=== PATIENT | female | born 1990 | race Caucasian/White ===

== ENCOUNTER 2021-01-31 20:37 | Emergency (ER) | payer SELFPAY ==
[~2021-01-31] VITALS: Ht 162.6 cm; Wt 63.9 kg
[2021-01-31] MEDS ORDERED: IV NORMAL SALINE 1,000ML 1,000 ML IV ONE (21:00)
--- NOTE | 2021-01-31 21:04 | PHYS DOC ---
General Adult EDM: Chief Complaint: MULTIPLE COMPLAINTS HPI: HPI: 30-year-old female presents with vaginal discharge and urinary retention. For the last couple days she has noticed a more greenish tent to her vaginal discharge. She also feels like the odor is different. Over the same time. She feels like she needs to urinate but then is unable to urinate sometimes. This is resulted in some lower abdominal pain. Patient also has not had a bowel movement in the last 2 days and she usually is fairly regular. She denies any new sexual partners. She denies fever or chills. Patient has a recent history of kidney stones. Review of Systems: Review of Systems: Constitutional: Denies fever or chills Eyes: Denies change in visual acuity HENT: Denies nasal congestion or sore throat Respiratory: Denies cough or shortness of breath Cardiovascular: Denies chest pain or edema GI: Denies abdominal pain, nausea, vomiting, bloody stools or diarrhea : Urinary retention, change in vaginal discharge Musculoskeletal: Denies back pain or joint pain Integument: Denies rash Neurologic: Denies headache, focal weakness or sensory changes Endocrine: Denies polyuria or polydipsia Lymphatic: Denies swollen glands Psychiatric: Denies depression or anxiety Current Medications: Current Meds: Current Medications Medications (Trade) Dose Ordered Sig/Elizabeth Start Time Stop Time Status Last Admin Dose Admin Sodium Chloride 1,000 ml @ 1,000 mls/hr 1X ONCE 01/31/21 21:00 01/31/21 21:59 Allergies: Allergies: Allergies Coded Allergies Type Severity Reaction Last Updated Verified amoxicillin Allergy Intermediate 01/31/21 Yes cefaclor Allergy Intermediate 01/31/21 Yes clavulanic acid Allergy Intermediate 01/31/21 Yes Physical Exam: PE: Constitutional: Well developed, well nourished, no acute distress, non-toxic appearance. [] HENT: Normocephalic, atraumatic, bilateral external ears normal, oropharynx moist, no oral exudates, nose normal. [] Eyes: PERRLA, EOMI, conjunctiva normal, no discharge. [] Neck: Normal range of motion, no tenderness, supple, no stridor. [] Cardiovascular:Heart rate regular rhythm, no murmur [] Lungs & Thorax: Bilateral breath sounds clear to auscultation [] Abdomen: Bowel sounds normal, soft, mild suprapubic tenderness, no masses, no pulsatile masses. [] Skin: Warm, dry, no erythema, no rash. [] Back: No tenderness, no CVA tenderness. [] Extremities: No tenderness, no cyanosis, no clubbing, ROM intact, no edema. [] Neurologic: Alert and oriented X 3, normal motor function, normal sensory function, no focal deficits noted. [] Psychologic: Affect normal, judgement normal, mood normal. [] Current Patient Data: Labs: Laboratory Tests Test 01/31/21 20:52 POC Urine HCG, Qualitative hcg negative (Negative) EKG: EKG: [] Radiology/Procedures: Radiology/Procedures: [] Impressions: PQRS Compliance Statement: One or more of the following individualized dose reduction techniques were utilized for this examination: 1. Automated exposure control 2. Adjustment of the mA and/or kV according to patient size 3. Use of iterative reconstruction technique CT ABDOMEN+PELVIS WO Clinical Indication: Reason: Bilateral flank pain, hx kidney stones / Spl. Instructions: / History: Comparison: CT abdomen and pelvis without contrast, December 31, 2020, [facility]. Technique: Helical CT imaging of the abdomen and pelvis is performed without IV or oral contrast. Findings: Evaluation of solid organs and bowel is limited without oral and IV contrast, decreasing sensitivity for detection of pathology. Lung bases clear. Cardiac size normal. Gallbladder is contracted. The liver, spleen, pancreas, adrenal glands, abdominal aorta, and kidneys are normal. There is no renal calculus. No obvious abnormality of the stomach. There is no small bowel obstruction. The appendix is normal. No colon wall thickening is identified. There is moderate colon stool volume. No abdominal adenopathy or free fluid. Retroverted uterus. Mild air in the vagina. Urinary bladder is decompressed. No pelvic free fluid. No acute bone abnormality. IMPRESSION: 1. No acute abdominal or pelvic abnormality. No obstructive uropathy. 2. Moderate colon stool volume, correlate for constipation. Electronically signed by: Uzair Tripp MD (01/31/2021 9:35 PM) [facility] DICTATED AND SIGNED BY: UZAIR TRIPP MD DATE: 01/31/212127 CC: DEANGELO WEBER DO; PCP,NO ~MTH0 0 Heart Score: C/O Chest Pain: N/A Risk Factors: Risk Factors: DM, Current or recent (<one month) smoker, HTN, HLP, family history of CAD, obesity. Risk Scores: Score 0 - 3: 2.5% MACE over next 6 weeks - Discharge Home Score 4 - 6: 20.3% MACE over next 6 weeks - Admit for Clinical Observation Score 7 - 10: 72.7% MACE over next 6 weeks - Early Invasive Strategies Course & Med Decision Making: Course & Med Decision Making Pertinent Labs and Imaging studies reviewed. (See chart for details) The patient's CT of the abdomen and pelvis is significant for constipation. I will discharge her with a bottle of magnesium citrate. The patient's labs are unremarkable. Her urinalysis is negative for infection. Her wet prep is positive for trichomonas and bacterial vaginosis. I will treat her with Flagyl for 7 days. We will give the first dose in the emergency room. She is stable for discharge at this time. [] Dragon Disclaimer: Dragon Disclaimer: This electronic medical record was generated, in whole or in part, using a voice recognition dictation system. Departure Departure: Impression: Primary Impression: Trichomonas infection Additional Impressions: Bacterial vaginosis Constipation by delayed colonic transit Disposition: HOME / SELF CARE / HOMELESS Condition: STABLE Referrals: PCP,NO (PCP) Patient Instructions: Bacterial Vaginosis, [id number], Constipation, Adult, [id number], Trichomoniasis-Brief Scripts Metronidazole (METRONIDAZOLE) 500 Mg Tablet 1 TAB PO BID for trichomonas for 7 Days, #14 TAB 1 Refill Prov: DEANGELO WEBER DO 01/31/21 DEANGELO WEBER DO Jan 31, 2021 21:04
[2021-01-31 21:30] LABS: BASO % 0 % (0-3); EOS # 0.2 x10^3/uL (0.0-0.7); EOS % 2 % (0-3); HEMATOCRIT 36.6 % (36.0-47.0); HEMOGLOBIN 12.2 g/dL (12.0-15.5); LYMPH % 21 % (24-48); MEAN CORPUSCULAR HEMOGLOBIN 30 pg (25-35); MEAN CORPUSCULAR HGB CONC 33 g/dL (31-37); MEAN CORPUSCULAR VOLUME 89 fL (79-100); MONO # 0.7 x10^3/uL (0.0-1.1); MONO % 7 % (0-9); NEUT # 6.5 x10^3uL (1.8-7.7); NEUT % 69 % (31-73); PLATELET COUNT 282 x10^3/uL (140-400); RED BLOOD COUNT 4.12 x10^6/uL (3.50-5.40); RED CELL DISTRIBUTION WIDTH 14.6 % (11.5-14.5); WHITE BLOOD COUNT 9.5 x10^3/uL (4.0-11.0)
[2021-01-31 21:37] LABS: CALCIUM 8.8 mg/dL (8.5-10.1); CREATININE 0.9 mg/dL (0.6-1.0); GFR 72.6; POTASSIUM 3.9 mmol/L (3.5-5.1)
--- NOTE | 2021-01-31 21:37 | RAD ---
PQRS Compliance Statement: One or more of the following individualized dose reduction techniques were utilized for this examinat ion: 1. Automated exposure control 2. Adjustment of the mA and/or kV according to patient size 3. Use of iterative reconstruction technique CT ABDOMEN+PELVIS WO Clinical Indication: Reason: Bilateral flank pain, hx kidney stones / Spl. Instructions: / History: Comparison: CT abdomen and pelvis without contrast, December 31, 2020, [facility]. Technique: Helical CT imaging of the abdomen and pelvis is performed without IV or oral contrast. Findings: Evaluation of solid organs and bowel is limited without oral and IV contrast, decreasing sensitivity for detection of pathology. Lung bases clear. Cardiac size normal. Gallbladder is contracted. The liver, spleen, pancreas, adrenal glands, abdominal aorta, and kidneys are normal. There is no renal calculus. No obvious abnormality of the stomach. There is no small bowel obstruction. The appendix is normal. N o colon wall thickening is identified. There is moderate colon stool volume. No abdominal adenopathy or free fluid. Retroverted uterus. Mild air in the vagina. Urinary bladder is decompressed. No pelvic free fluid. No acute bone abnormality. IMPRESSION: 1. No acute abdominal or pelvic abnormality. No obstructive uropathy. 2. Moderate colon stool volume, correlate for constipation. Electronically signed by: Uzair Barnes MD (01/31/2021 9:35 PM) [facility]
[2021-01-31 21:45] LABS: BACTERIA,URINE FEW /HPF (0-FEW); BILIRUBIN,URINE NEG (NEG); CLARITY,URINE CLEAR; COLOR,URINE YELLOW; GLUCOSE,URINE NEG (NEG); NITRITE,URINE NEG (NEG); RBC,URINE 0 /HPF (0-2); SQUAMOUS EPITHELIAL CELL,UR FEW /LPF; UROBILINOGEN,URINE 0.2 mg/dL (0.2 mg/dL)
[2021-01-31 21:45] LABS: ALBUMIN 3.4 g/dL (3.4-5.0); TOTAL BILIRUBIN 0.1 mg/dL (0.2-1.0); TOTAL PROTEIN 6.7 g/dL (6.4-8.2)
[2021-01-31] MEDS ORDERED: METR-34 PO (22:14)
[2021-01-31 22:25] VITALS: BP 108/61
[2021-01-31] MEDS ORDERED: MAGNESIUM CITRATE 296 ML SOLUTION. PO ONE (23:00)
[2021-01-31] MEDS ORDERED: metroNIDAZOLE 500 MG TABLET PO ONE (23:00)
[2021-02-02 19:02] LABS: CHLAMYDIA PROBE Negative (Negative)
== END 2021-01-31 22:30 | disposition home or self-care (01) ==
LOC: ER 20:37
DX: A59.9 Trichomoniasis, unspecified (principal); N76.0 Acute vaginitis; K59.01 Slow transit constipation; Z88.1 Allergy status to other antibiotic agents
CPT/HCPCS: 36415; 74176; 80053; 81001; 81025; 85025; 87086; 87491; 87591; 96360; 99284; J7030; Q0111

== ENCOUNTER 2021-02-17 15:39 | Emergency (ER) | payer SELFPAY ==
[~2021-02-17] VITALS: Ht 162.6 cm; Wt 63.9 kg
[~2021-02-17 15:39] MED LIST: METR-34 PO
[2021-02-17 15:53] VITALS: BP 130/92
[2021-02-17] MEDS ORDERED: diphenhydrAMINE HCL 25 MG CAPSULE PO ONE (16:00)
[2021-02-17] MEDS ORDERED: FAMO40TA4 PO (17:26)
[2021-02-17] MEDS ORDERED: PRED20TA PO (17:26)
[2021-02-17] MEDS ORDERED: DIPH25CA58 PO (17:26)
--- NOTE | 2021-02-17 17:28 | PHYS DOC ---
Past History Past Surgical History: No Surgical History (KEATON MCCORMACK APRN) Alcohol Use: None (KEATON MCCORMACK APRN) General Adult EDM: Chief Complaint: SKIN RASH/ABSCESS HPI: HPI: Patient is a 30-year-old female who presents with hives all over her body since last night. Patient reports taking Benadryl which helped with symptoms but rash has not improved. Patient denies using new soaps, lotions or any new exposure. Denies cough, chest pain or shortness of breath. Patient denies any medical history. (KEATON MCCORMACK APRN) Review of Systems: Review of Systems: ROS At least 10 ROS systems have been reviewed and are negative except as documented in the HPI. General: Negative except as outlined in HPI above. Skin: Negative except as outlined in HPI above. HEENT: Negative except as outlined in HPI above. Neck: Negative except as outlined in HPI above. Respiratory: Negative except as outlined in HPI above.. Cardiovascular: Negative except as outlined in HPI above. Abdomen: Negative except as outlined in HPI above. : Negative except as outlined in HPI above. Back/MSK: Negative except as outlined in HPI above. Neuro: Negative except as outlined in HPI above. Psych: Negative except as outlined in HPI above. (KEATON MCCORMACK APRN) Current Medications: Current Meds: Current Medications Medications (Trade) Dose Ordered Sig/Elizabeth Start Time Stop Time Status Last Admin Dose Admin Diphenhydramine HCl (Benadryl) 25 mg STK-MED ONCE 02/17/21 16:00 02/17/21 16:01 DC (KEATON MCCORMACK APRN) Allergies: Allergies: Allergies Coded Allergies Type Severity Reaction Last Updated Verified amoxicillin Allergy Intermediate 01/31/21 Yes cefaclor Allergy Intermediate 01/31/21 Yes clavulanic acid Allergy Intermediate 01/31/21 Yes (KEATON MCCORMACK APRN) Physical Exam: PE: Constitutional: Well developed, well nourished, no acute distress, non-toxic appearance. [] HENT: Normocephalic, atraumatic, bilateral external ears normal, oropharynx moist, no oral exudates, nose normal. [] Eyes: PERRLA, EOMI, conjunctiva normal, no discharge. [] Neck: Normal range of motion, no tenderness, supple, no stridor. [] Cardiovascular:Heart rate regular rhythm, no murmur [] Lungs & Thorax: Bilateral breath sounds clear to auscultation [] Abdomen: Bowel sounds normal, soft, no tenderness, no masses, no pulsatile masses. [] Skin: Generalized, pruritic, red, raised rash Back: No tenderness, no CVA tenderness. [] Extremities: No tenderness, no cyanosis, no clubbing, ROM intact, no edema. [] Neurologic: Alert and oriented X 3, normal motor function, normal sensory function, no focal deficits noted. [] Psychologic: Affect normal, judgement normal, mood normal. [] (KEATON MCCORMACK APRN) Current Patient Data: Vital Signs: Vital Signs Date Time Temp Pulse Resp B/P (MAP) Pulse Ox O2 Delivery O2 Flow Rate FiO2 02/17/21 15:53 114 18 130/92 (105) 100 (KEATON MCCORMACK APRN) EKG: EKG: [] (KEATON MCCORMACK APRN) Radiology/Procedures: Radiology/Procedures: [] (KEATON MCCORMACK APRN) Heart Score: C/O Chest Pain: No Risk Factors: Risk Factors: DM, Current or recent (<one month) smoker, HTN, HLP, family history of CAD, obesity. Risk Scores: Score 0 - 3: 2.5% MACE over next 6 weeks - Discharge Home Score 4 - 6: 20.3% MACE over next 6 weeks - Admit for Clinical Observation Score 7 - 10: 72.7% MACE over next 6 weeks - Early Invasive Strategies (KEATON MCCORMACK APRN) Course & Med Decision Making: Course & Med Decision Making Pertinent Labs and Imaging studies reviewed. (See chart for details) [] 30-year-old female presents with hives all over her body since last night. Patient given 50 Benadryl, 40 of famotidine, 60 mg of prednisone while in the emergency room to treat symptoms. Patient reports that itching has improved. Sending patient home with prescription for Benadryl, famotidine, prednisone. Patient states that she is unable to buy [id number] medications. Discussed return precautions in length. Patient reports that she understands discharge instructions. Hemodynamically stable upon disposition. (KEATON MCCORMACK APRN) Bessie Disclaimer: Dragmarietta Disclaimer: This electronic medical record was generated, in whole or in part, using a voice recognition dictation system. (KEATON MCCORMACK APRN) Attending Co-Sign The patient was seen and interviewed as well as examined at the bedside. The chart was reviewed. The case was discussed. Agree with the plan of care. (DEANGELO WEBER DO) Departure Departure: Impression: Primary Impression: Urticaria Disposition: HOME / SELF CARE / HOMELESS Condition: STABLE Referrals: PCP,NO (PCP) Patient Instructions: Hives, [id number] Additional Instructions: You are seen emergency room for allergic reaction. Please try and pay attention to what could be causing the allergy to your skin. You were given medications while in the ER to help with symptoms. I wrote you a prescription for Benadryl, famotidine, prednisone . Please take medications until your symptoms have resolved. Please return to emergency room if you have an increase in shortness of breath, chest pressure, uncontrolled vomiting, any worsening symptoms or concerns. EMERGENCY DEPARTMENT GENERAL DISCHARGE INSTRUCTIONS Thank you for coming to [facility] (ED) today and trusting us with you care. We trust that you had a positivie experience in our Emergency Department. If you wish to speak to the department management, you may call the director at [phone]. YOUR FOLLOW UP INSTRUCTIONS ARE FOLLOWS: 1. Do you have a private Doctor? If you do not have a private doctor, please ask for a resource list of physicians or clinics that may be able to assist you with follow up care. 2. The Emergency Physician has interpreted your x-rays. The X-Ray specialist will also review them. If there is a change in the findings, you will be notified in 48 hours when at all possible. 3. A lab test or culture has been done, your results will be reviewed and you will be notified if you need a change in treatment. ADDITIONAL INSTRUCTIONS AND INFORMATION: 1. Your care today has been supervised by a physician who is specially trained in emergency care. Many problems require more than one evaluation for a complete diagnosis and treatment. We recommend that you schedule your follow up appointment as recommended to ensure complete treatment of you illness or injury. If you are unable to obtain follow up care and continue to have a problem, or if your condition worsens, we recommend that you return to the ED. 2. We are not able to safely determine your condition over the phone nor are we able to give sound medical advice over the phone. For these safety reasons, if you call for medical advice we will ask you to come to the ED for further evaluation. 3. If you have any questions regarding these discharge instructions please call the ED at [phone]. SAFETY INFORMATION: In the interest of safety, wellness, and injury prevention; we encourage you to wear your sealbelt, if you smoke; quite smoking, and we encourage family to use a protective helmet for bicycling and other sporting events that present an increased risk for head injury. IF YOUR SYMPTOMS WORSEN OR NEW SYMPTOMS DEVELOP, OR YOU HAVE CONCERNS ABOUT YOUR CONDITION; OR IF YOUR CONDITION WORSENS WHILE YOU ARE WAITING FOR YOUR FOLLOW UP APPOINTMENT; EITHER CONTACT YOUR PRIMARY CARE DOCTOR, THE PHYSICIAN WHOSE NAME AND NUMBER YOU WERE GIVEN, OR RETURN TO THE ED IMMEDIATELY. Scripts Metronidazole (METRONIDAZOLE) 500 Mg Tablet 1 TAB PO BID for trichomoniasis for 7 Days, #14 TAB 0 Refills Prov: KEATON MCCORMACK APRN 02/17/21 Prednisone (PREDNISONE) 20 Mg Tablet 3 TAB PO DAILY for allergies for 5 Days, #15 TAB Prov: KEATON MCCORMACK APRN 02/17/21 Famotidine (FAMOTIDINE) 40 Mg Tablet 1 TAB PO DAILY for allergies for 5 Days, #5 TAB 3 Refills Prov: KEATON MCCORMACK APRN 02/17/21 Diphenhydramine Hcl (BENADRYL) 25 Mg Capsule 1 CAP PO TID PRN PRN for ALLERGIES for 5 Days, #15 CAP 0 Refills Prov: KEATON MCCORMACK APRN 02/17/21 KEATON MCCORMACK APRN Feb 17, 2021 17:28 DEANGELO WEBER DO Feb 19, 2021 10:26
[2021-02-17] MEDS ORDERED: predniSONE 20 MG TABLET PO ONE (17:30)
[2021-02-17] MEDS ORDERED: FAMOTIDINE 20 MG TABLET PO ONE (17:30)
[2021-02-17] MEDS ORDERED: METR-34 PO (17:54)
== END 2021-02-17 17:30 | disposition home or self-care (01) ==
LOC: ER 15:39
DX: L50.9 Urticaria, unspecified (principal); Z88.1 Allergy status to other antibiotic agents
CPT/HCPCS: 99283-25

== ENCOUNTER 2021-06-09 15:23 | Emergency (ER) | payer SELFPAY ==
[~2021-06-09] VITALS: Ht 162.6 cm; Wt 69.3 kg
[~2021-06-09 15:23] MED LIST changes: +DIPH25CA58 PO; +FAMO40TA4 PO; +PRED20TA PO
[2021-06-09 15:35] VITALS: BP 109/65
[2021-06-09] MEDS ORDERED: HYDR-2155 PO (15:44)
--- NOTE | 2021-06-09 15:45 | PHYS DOC ---
Past History Past Surgical History: No Surgical History (ADELINE NEAL APRN) Alcohol Use: None (ADELINE NEAL APRN) General Adult EDM: Chief Complaint: DENTAL PROBLEM HPI: HPI: Patient is a 30-year-old female who presents to the emergency department for dental pain. Patient reports that 2 weeks ago she broke a tooth and while in senior care they started her on clindamycin and plan to remove the tooth but she got released from senior care before getting her tooth pulled. Patient is reporting upper left molar pain. She does not have a dentist that she does not have dental insurance. Patient denies fevers, nausea, vomiting, facial swelling, difficulty swallowing. (ADELINE NEAL APRN) Review of Systems: Review of Systems: Constitutional: See HPI HENT: See HPI GI: See HPI (ADELINE NEAL APRN) Allergies: Allergies: Allergies Coded Allergies Type Severity Reaction Last Updated Verified amoxicillin Allergy Intermediate 01/31/21 Yes cefaclor Allergy Intermediate 01/31/21 Yes clavulanic acid Allergy Intermediate 01/31/21 Yes (ADELINE NEAL APRN) Physical Exam: PE: Constitutional: Well developed, well nourished, no acute distress, non-toxic appearance. [] HENT: Normocephalic, atraumatic, bilateral external ears normal, oropharynx moist, several areas of broken teeth and dental decay, no facial swelling, no oropharyngeal swelling or erythema, uvula midline, no trismus, no phonation changes, patient maintaining secretions, no oral exudates, nose normal. [] Eyes: PERRL, EOMI, conjunctiva normal, no discharge. [] Neck: Normal range of motion, no tenderness, supple, no stridor. [] Cardiovascular: Normal peripheral perfusion Lungs & Thorax: Normal work of breathing, no tachypnea Abdomen: Soft and flat Skin: Warm, dry, no erythema, no rash. [] Back: Normal range of motion Extremities: No tenderness, no cyanosis, no clubbing, ROM intact, no edema. [] Neurologic: Alert and oriented X 3, normal motor function, normal sensory function, no focal deficits noted. [] Psychologic: Affect normal, judgement normal, mood normal. [] (ADELINE NEAL APRN) EKG: EKG: [] (ADELINE NEAL APRN) Radiology/Procedures: Radiology/Procedures: [] (ADELINE NEAL APRN) Heart Score: C/O Chest Pain: N/A Risk Factors: Risk Factors: DM, Current or recent (<one month) smoker, HTN, HLP, family history of CAD, obesity. Risk Scores: Score 0 - 3: 2.5% MACE over next 6 weeks - Discharge Home Score 4 - 6: 20.3% MACE over next 6 weeks - Admit for Clinical Observation Score 7 - 10: 72.7% MACE over next 6 weeks - Early Invasive Strategies (ADELINE NEAL APRN) Course & Med Decision Making: Course & Med Decision Making Pertinent Labs and Imaging studies reviewed. (See chart for details) [] Patient resents to the emergency department for dental pain. Patient finished last week clindamycin. It does not appear that patient has a dental abscess or facial swelling. She does not have any oropharyngeal swelling. Patient will be discharged home with pain medication she was given a clinic list for dentist to follow-up with. I discussed with patient all findings and diagnostic testing as well as the need to follow-up with PCP for further evaluation and treatment or return to the ER if any new or worsening symptoms. Strict return precautions were also discussed at length. Patient voiced understanding and agreement with the plan. Patient is hemodynamically stable at the time of disposition. (ADELINE NEAL APRN) Dragon Disclaimer: Dragon Disclaimer: This electronic medical record was generated, in whole or in part, using a voice recognition dictation system. (ADELINE NEAL APRN) Attending Co-Sign The patient was seen and interviewed as well as examined at the bedside. The chart was reviewed. The case was discussed. Agree with the plan of care. (DEANGELO WEBER DO) Departure Departure: Impression: Primary Impression: Pain, dental Disposition: HOME / SELF CARE / HOMELESS Condition: GOOD Referrals: PCP,NO (PCP) Patient Instructions: Dental Pain Additional Instructions: You were seen in the emergency department today for dental pain. You are being discharged home with a pain medication that you can take for severe pain. This medication is hydrocodone and Tylenol and a combination tablet. Do not take any additional Tylenol with this medication. This medication may cause sedation so do not take when you need to be alert, driving a vehicle or with alcohol. Follow-up with one of the dentist on the dental clinic list that we provided you with. Please follow-up on Friday. Return to the emergency department if you develop shortness of breath, difficulty swallowing, high fevers refractory to treatment, intractable nausea or vomiting. Scripts Hydrocodone Bit/Acetaminophen (HYDROCODONE-APAP 5-325 ) 1 Each Tablet 1 TAB PO PRN Q6HRS PRN for PAIN for 2 Days, #8 TAB 0 Refills Prov: ADELINE NEAL APRN 06/09/21 ADELINE NEAL APRN Jun 09, 2021 15:45 DEANGELO WEBER DO Jun 10, 2021 16:49
== END 2021-06-09 16:11 | disposition home or self-care (01) ==
LOC: ER 15:23
DX: K02.9 Dental caries, unspecified (principal); Z88.1 Allergy status to other antibiotic agents
CPT/HCPCS: 81025; 99283